=== PATIENT | female | born 1970 ===

== ENCOUNTER 2018-04-02 17:13 | Inpatient (IN) | payer BC ==
--- NOTE | 2018-04-02 17:44 | ED PDOC ---
"Arrival/HPI - General Time Seen by Provider: 04/02/18 17:15 Historian: Patient - History of Present Illness Narrative History of Present Illness (Text): 04/02/18 17:42 47 y/o female, pmh including htn/seizure, allergic to penicillin and carbamazepine, recently started control for her heavy menstrual period about 1 month ago, send in by pmd, for evaluation of leg swelling and shortness of breath. Pt. stated that she has been having left calf pain for the past 4 weeks, associated with shortness of breath about 2-3 days ago, admits coughing with difficulty getting the air in and out of the lung, no night sweat, no rash , no numbness or tingling, no palpitation, no other medical or psychological complaints. Past Medical History - Provider Review Nursing Documentation Reviewed: Yes - Infectious Disease Hx of Infectious Diseases: None - Cardiac Hx Cardiac Disorders: Yes Hx Hypertension: Yes - Pulmonary Hx Respiratory Disorders: No - Neurological Hx Neurological Disorder: Yes Hx Seizures: Yes Other/Comment: Last sz at age 17 - HEENT Hx HEENT Disorder: No - Renal Hx Renal Disorder: No - Endocrine/Metabolic Hx Endocrine Disorders: No - Hematological/Oncological Hx Blood Disorders: No - Integumentary Hx Dermatological Disorder: No - Musculoskeletal/Rheumatological Hx Musculoskeletal Disorders: No - Gastrointestinal Hx Gastrointestinal Disorders: No - Genitourinary/Gynecological Hx Genitourinary Disorders: No - Psychiatric Hx Depression: No Hx Emotional Abuse: No Hx Physical Abuse: No Hx Substance Use: No - Past Surgical History Past Surgical History: Non-Contributing - Anesthesia Hx Anesthesia: No - Suicidal Assessment Feels Threatened In Home Enviroment: No Family/Social History - Physician Review Nursing Documentation Reviewed: Yes Family/Social History: Unknown Family HX Smoking Status: Never Smoked Hx Alcohol Use: Yes Hx Substance Use: No Hx Substance Use Treatment: No Allergies/Home Meds Allergies/Adverse Reactions: Allergies amoxicillin Allergy (Verified 03/27/16 12:44) VOMITING carbamazepine [From Tegretol] Allergy (Verified 03/27/16 12:44) NAUSEA Penicillins Allergy (Verified 03/27/16 12:44) RASH Home Medications: Home Meds Medication Instructions Recorded Confirmed Losartan [Cozaar] 100 mg PO DAILY 12/24/13 03/27/16 Review of Systems - Review of Systems Constitutional: absent: Fatigue, Fevers Eyes: absent: Vision Changes ENT: absent: Hearing Changes Respiratory: SOB, Cough. absent: Sputum, Wheezing Cardiovascular: absent: Chest Pain Gastrointestinal: absent: Abdominal Pain, Vomiting Genitourinary Female: absent: Dysuria, Frequency Musculoskeletal: Other (+left leg swelling). absent: Arthralgias, Back Pain, Neck Pain Skin: absent: Rash, Pruritis Neurological: absent: Headache, Dizziness Psychiatric: absent: Anxiety, Depression, Suicidal Ideation Physical Exam Vital Signs Reviewed: Yes Vital Signs Temp Pulse Resp BP Pulse Ox 04/02/18 17:14 98.2 F 103 H 18 118/73 97 Temperature: Afebrile Blood Pressure: Normal Pulse: Tachycardic Respiratory Rate: Normal Appearance: Positive for: Well-Appearing, Non-Toxic, Comfortable Pain Distress: None Mental Status: Positive for: Alert and Oriented X 3 - Systems Exam Head: Present: Atraumatic, Normocephalic Pupils: Present: PERRL Extroacular Muscles: Present: EOMI Conjunctiva: Present: Normal Mouth: Present: Moist Mucous Membranes Neck: Present: Normal Range of Motion Respiratory/Chest: Present: Clear to Auscultation, Good Air Exchange. No: Respiratory Distress, Accessory Muscle Use Cardiovascular: Present: Normal S1, S2, Tachycardic, Other (no pedal edema). No : Murmurs Abdomen: No: Tenderness, Distention, Peritoneal Signs Back: Present: Normal Inspection Upper Extremity: Present: Normal Inspection. No: Cyanosis, Edema Lower Extremity: Present: Normal Inspection, NORMAL PULSES, Normal ROM, Robert's Sign (LLE ), Swelling (LLE), Neurovascularly Intact, Capillary Refill < 2 s. No : Edema, Deformity, Temperature Abnormalties Neurological: Present: GCS=15, CN II-XII Intact, Speech Normal Skin: Present: Warm, Dry, Normal Color. No: Rashes Psychiatric: Present: Alert, Oriented x 3, Normal Insight, Normal Concentration Medical Decision Making ED Course and Treatment: 04/02/18 17:45 -Labs/dimer/coag/type and screen -LLE Venuous doppler -CTA Chest (wells criteria 7.5) -EKG -Nasal cannula 2L -IVF @ 100cc/hr -administration physician -Observe and reassess 04/02/18 21:32 -Urine hcg is negative -EKG: Sinus Tachycardia @ 114 BPM, no ST elevation o rdepression, no T wave inversion -LLE Venuous doppler: as per preliminary report, no acute DVT -CTA Chest: Pulmonary emboli are seen in segmental and subsegmental branches of both lungs. Moderate clot burden. No evidence of right heart strain. Fatty infiltration of the liver with associated hepatomegaly. -Labs show no acute findings except K+ 3.2 (potassium chloride 40meq po ordered) -BNP with normal limit -Dimer 1018, CTA and sonogram ordered -Pt. refused rectal guaiac exam, no black color stool and no abdominal pain, no rectal bleeding, IV heparin bolud and maintence started -Paging the admitting Dr. Rock paged for admission. 04/02/18 21:50 -I spoke to Dr. Rock, discussed about the case/labs/radiology result and he came to see the patient earlier in person, agreed on IV heparin -I spoke to Dr. Ye, ICU tonight, will come to evaluate the patient and agreed on admission. - Critical Care Critical Care Minutes: 30 minutes Critical Care Time: Unstable Narrative Critical Care (Text): 04/02/18 22:00 Bilateral PE, tachycardia, needs IV heparin and bolus, risk for cardiac arrest. - Lab Interpretations Lab Results: 04/02/18 19:14 04/02/18 19:14 Lab Results 04/02/18 19:45: Blood Type Confirm O POSITIVE 04/02/18 19:14: WBC 8.5 D, RBC 3.85, Hgb 10.9 L, Hct 33.0 L, MCV 85.7, MCH 28.3 , MCHC 33.0, RDW 13.7, Plt Count 278, MPV 10.5, Gran % 62.4, Lymph % (Auto) 31.3 , [place] % (Auto) 4.7, Eos % (Auto) 1.4 L, Baso % (Auto) 0.2, Gran # 5.33, Lymph # (Auto) 2.7, [place] # (Auto) 0.4, Eos # (Auto) 0.1, Baso # (Auto) 0.02 04/02/18 19:14: Sodium 140, Potassium 3.2 L, Chloride 100, Carbon Dioxide 24, Anion Gap 19, BUN 12, Creatinine 0.7, Est GFR ( Amer) > 60, Est GFR (Non- Af Amer) > 60, Random Glucose 236 H, Calcium 9.5, Magnesium 1.7, Total Bilirubin 0.5, AST 54 H, ALT 73 H, Alkaline Phosphatase 104, NT-Pro-B Natriuret Pep 65.6, Total Protein 7.4, Albumin 4.1, Globulin 3.3, Albumin/Globulin Ratio 1.2 04/02/18 19:14: PT 11.6, INR 1.02, APTT 23.5 L, D-Dimer, Quantitative 1018 H 04/02/18 19:11: Blood Type O POSITIVE, Antibody Screen Negative, BBK History Checked No verified bt I have reviewed the lab results: Yes - RAD Interpretation Radiology Orders: 04/02/18 17:55 ANGIO CHEST PE PROTOCOL [CT] Stat DUPLEX LOWER EXTRM VEIN LEFT [US] Stat CTA Chest: Pulmonary arteries: Pulmonary emboli are seen in segmental and subsegmental branches of both lungs. Aorta: No acute findings. No thoracic aortic aneurysm. Lungs: Unremarkable. No mass. No consolidation. Pleural space: Unremarkable. No significant effusion. No pneumothorax. Heart: Unremarkable. No cardiomegaly. No significant pericardial effusion. No evidence of RV dysfunction. Bones/joints: No acute fracture. No dislocation. Soft tissues: Unremarkable. Lymph nodes: Unremarkable. No enlarged lymph nodes. Liver: Fatty infiltration of the liver with associated hepatomegaly. IMPRESSION: 1. Pulmonary emboli are seen in segmental and subsegmental branches of both lungs. Moderate clot burden. No evidence of right heart strain. 2. Fatty infiltration of the liver with associated hepatomegaly. MELISSA [facility] | Preliminary Radiology Report Thank you for allowing us to participate in the care of your patient. Dictated and Authenticated by: Orion Linda MD 04/02/2018 9:24 PM Eastern Time ([place] & [place]) LLE Venuous Doppler: as per preliminary report, no acute DVT Instructional Support Services Director: Radiologist - EKG Interpretation EKG Interpretation (Text): 04/02/18 17:58 -EKG: Sinus Tachycardia @ 114 BPM, no ST elevation o rdepression, no T wave inversion Interpreted by ED Physician: Yes Type: 12 lead EKG - Medication Orders Current Medication Orders: Acetaminophen (Tylenol 325mg Tab) 650 mg PO Q4 PRN PRN Reason: Pain, Mild (1-3) Sodium Chloride (Sodium Chloride 0.9%) 1,000 mls @ 100 mls/hr IV .Q10H HERBERTH Last Admin: 04/02/18 21:30 Dose: 100 mls/hr eMAR Start Stop Document 04/02/18 21:30 AD (Rec: 04/02/18 21:31 [email or web address] Intravenous Solution Start Date 04/02/18 Start Time 21:30 Heparin Sodium/Sodium Chloride (Heparin 52777 Units/250ml 1/2 Normal Saline) 25 ,000 units in 250 mls @ 21.898 mls/hr IV .[id number] PRN; Protocol; 18 UNITS/KG/HR PRN Reason: ADJUST RATE PER PROTOCOL Tramadol HCl (Ultram) 50 mg PO Q6H PRN PRN Reason: Pain, moderate (4-7) Discontinued Medications Acetaminophen (Tylenol 325mg Tab) 325 mg PO STAT STA Stop: 04/02/18 20:02 Last Admin: 04/02/18 21:31 Dose: 325 mg MAR Pain/Vitals Document 04/02/18 21:31 AD (Rec: 04/02/18 21:[address] [email or web address] Pain Reassessment Is This A Pain ReAssessment? No Presence of Pain Presence of Pain Yes Location Intensity 5 Potassium Chloride (K-Dur 20 Meq Er Tab) 40 meq PO STAT STA Stop: 04/02/18 19:45 Last Admin: 04/02/18 21:30 Dose: 40 meq - PA / PAINTER ORDNANCE / Resident Statement MD/DO has reviewed & agrees with the documentation as recorded. Disposition/Present on Arrival - Present on Arrival Any Indicators Present on Arrival: No History of DVT/PE: No History of Uncontrolled Diabetes: No Urinary Catheter: No History of Decub. Ulcer: No History Surgical Site Infection Following: None - Disposition Have Diagnosis and Disposition been Completed?: Yes Diagnosis: Hypokalemia, Bilateral pulmonary embolism Disposition: HOSPITALIZED Disposition Time: 21:34 Patient Plan: Admission, ICU, Observation Patient Problems: Current Active Problems Problem Status Onset Hypokalemia Acute Bilateral pulmonary embolism Acute Condition: STABLE Referrals: Michael Rock MD [Primary Care Provider] - Follow up with primary"
[2018-04-02 17:53] VITALS: BMI 49.0
[2018-04-02 19:21] LABS: BASO # 0.02 K/mm3 (0.0-2.0); BASO % 0.2 % (0.0-3.0); EOS # 0.1 (0.0-0.7); EOS % 1.4 % (1.5-5.0); GRAN # 5.33 (1.4-6.5); GRAN % 62.4 % (50.0-68.0); HEMOGLOBIN 10.9 g/dL (12.0-16.0); LYMPH # 2.7 (1.2-3.4); LYMPH % 31.3 % (22.0-35.0); MEAN CELL VOLUME 85.7 fl (80.0-105.0); MEAN CORPUSCULAR HEMOGLOBIN 28.3 pg (25.0-35.0); MEAN PLATELET VOLUME 10.5 fl (7.0-11.0); MONO # 0.4 (0.1-0.6); MONO % 4.7 % (1.0-6.0); RBC 3.85 10^6/uL (3.5-6.1); RED CELL DISTRIBUTION WIDTH 13.7 % (11.5-14.5); WHITE BLOOD COUNT 8.5 10^3/ul (4.5-11.0)
[2018-04-02 19:27] LABS: INR 1.02; PARTIAL THROMBOPLASTIN TIME 23.5 Seconds (25.1-36.5); PROTHROMBIN TIME 11.6 SECONDS (9.4-12.5)
[2018-04-02 19:29] LABS: ALB/GLOB RATIO 1.2 (1.1-1.8); ALBUMIN 4.1 g/dL (3.0-4.8); ALT/SGPT 73 U/L (7-56); AST/SGOT 54 U/L (14-36); BLOOD UREA NITROGEN 12 mg/dL (7-21); CALCIUM 9.5 mg/dL (8.4-10.5); GFR NON-AFRICAN AMERICAN > 60
[2018-04-02 19:37] LABS: B-TYPE NATRIURETIC PEPTIDE 65.6 pg/mL (0-450)
[2018-04-02] MEDS ORDERED: Potassium Chloride 20 mEq ER Tab PO STA (19:44)
[2018-04-02] MEDS ORDERED: Iodixanol 320 MG/ML 100 ML BOTTLE IV ONE (21:06)
[2018-04-02] MEDS: Sodium Chloride 0.9% 1,000 ML IV SCH (21:30)
[2018-04-02] MEDS: Heparin25000 units/250ml 1/2NS 25,000 UNITS/250 ML BAG IV PRN (22:02)
--- NOTE | 2018-04-02 23:34 | CP.PCM.CON ---
History of Present Illness - History of Present Illness History of Present Illness: CC: SOB, chest pain and calf pain Pt is a 47 yo F with pmhx of HTN, seizures and menorrhagia who presents today for SOB, chest pain and calf pain x 5 days. She states that she first felt the calf pain about a week ago, and it felt like a leg cramp which she normally gets. She states that on 03/29 she went to a football game and was climbing stairs when she suddenly noted SOB and chest pain. She thought that she was having a panic attack, but then it persisted through the weekend and into work, when she noted that the SOB was worsening and was noticed by her co-workers which prompted her to come to the ED. She also states that she was placed on control pills starting in January for menorrhagia. She denies any previous hx of PE, DVTs and denies any family hx of clotting issues. She admits to chest tightness, and a cough that is productive of yellow sputum but denies chest pain and SOB at this time, noting that she only has it with exertion. She also denies fever, chills, weakness, numbness, tingling, night sweats, palpitations, nausea, vomiting, or dysuria. PMHx: HTN, Seizures (last when she was 19), Menorrhagia PSHx: None Social Hx: Denies any smoking hx, no etOH abuse, no illcit drug use. 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 Dad: 70 - DM Review of Systems - Constitutional Constitutional: absent: Chills, Fever, Headache, Night Sweats, Weakness - EENT Eyes: absent: Change in Vision - Cardiovascular Cardiovascular: Chest Pain with Activity (radiating to the back), Dyspnea on Exertion, Leg Edema. absent: Chest Pain at Rest, Diaphoresis, Pain Radiating to Arm/Neck/Jaw, Lightheadedness, Palpitations - Respiratory Respiratory: Cough, Dyspnea on Exertion, Pain with Coughing. absent: Hemoptysis , Wheezing, Pain on Inspiration - Gastrointestinal Gastrointestinal: Constipation (related to iron pills). absent: Abdominal Pain , Diarrhea, Hematochezia, Melena, Nausea, Vomiting - Genitourinary Genitourinary: absent: Dysuria, Hematuria - Neurological Neurological: absent: Confusion, Dizziness, Numbness, Focal Weakness, Tingling, Weakness - Hematologic/Lymphatic Hematologic: absent: Easy Bleeding, Easy Bruising Past Patient History - Infectious Disease Hx of Infectious Diseases: None - Past Social History Smoking Status: Never Smoked - CARDIAC Hx Cardiac Disorders: Yes Hx Hypertension: Yes - PULMONARY Hx Respiratory Disorders: No - NEUROLOGICAL Hx Neurological Disorder: Yes Hx Seizures: Yes Other/Comment: Last sz at age 17 - HEENT Hx HEENT Problems: No - RENAL Hx Chronic Kidney Disease: No - ENDOCRINE/METABOLIC Hx Endocrine Disorders: No - HEMATOLOGICAL/ONCOLOGICAL Hx Blood Disorders: No - INTEGUMENTARY Hx Dermatological Problems: No - MUSCULOSKELETAL/RHEUMATOLOGICAL Hx Musculoskeletal Disorders: No - GASTROINTESTINAL Hx Gastrointestinal Disorders: No - GENITOURINARY/GYNECOLOGICAL Hx Genitourinary Disorders: No - PSYCHIATRIC Hx Depression: No Hx Emotional Abuse: No Hx Physical Abuse: No Hx Substance Use: No - SURGICAL HISTORY Hx Surgeries: No Other/Comment: breast cyst - ANESTHESIA Hx Anesthesia: No Meds Allergies/Adverse Reactions: Allergies Allergy/AdvReac Type Severity Reaction Status Date / Time amoxicillin Allergy VOMITING Verified 03/27/16 12:44 carbamazepine [From Tegretol] Allergy NAUSEA Verified 03/27/16 12:44 Penicillins Allergy RASH Verified 03/27/16 12:44 - Medications Medications: Current Medications Acetaminophen (Tylenol 325mg Tab) 650 mg PO Q4 PRN PRN Reason: Pain, Mild (1-3) Sodium Chloride (Sodium Chloride 0.9%) 1,000 mls @ 100 mls/hr IV .Q10H HERBERTH Last Admin: 04/02/18 21:30 Dose: 100 mls/hr Heparin Sodium/Sodium Chloride (Heparin 14499 Units/250ml 1/2 Normal Saline) 25 ,000 units in 250 mls @ 21.898 mls/hr IV .[id number] PRN; Protocol; 18 UNITS/KG/HR PRN Reason: ADJUST RATE PER PROTOCOL Last Admin: 04/02/18 22:02 Dose: 21.898 mls/hr Tramadol HCl (Ultram) 50 mg PO Q6H PRN PRN Reason: Pain, moderate (4-7) Physical Exam - Constitutional Appears: Well, Non-toxic, No Acute Distress - Head Exam Head Exam: ATRAUMATIC, NORMAL INSPECTION, NORMOCEPHALIC - Eye Exam Eye Exam: EOMI, Normal appearance, PERRL - Respiratory Exam Respiratory Exam: Clear to Auscultation Bilateral, NORMAL BREATHING PATTERN. absent: Accessory Muscle Use, Decreased Breath Sounds, Rales, Rhonchi, Wheezes, Respiratory Distress, Stridor - Cardiovascular Exam Cardiovascular Exam: RRR, +S1, +S2. absent: Tachycardia, Clicks, Gallop, Rubs - GI/Abdominal Exam GI & Abdominal Exam: Normal Bowel Sounds, Soft. absent: Distended, Firm, Guarding, Rebound, Rigid, Tenderness - Extremities Exam Extremities exam: Positive for: normal capillary refill, normal inspection, pedal pulses present. Negative for: calf tenderness Additional comments: no warmth or erythema - Neurological Exam Neurological exam: Alert, CN II-XII Intact, Oriented x3 - Psychiatric Exam Psychiatric exam: Normal Affect, Normal Mood - Skin Skin Exam: Dry, Intact, Normal Color, Warm Additional comments: no cyanosis or petechiae on exam Results - Vital Signs Recent Vital Signs: Last Vital Signs Temp 98.2 F 04/02/18 17:14 Pulse 99 H 04/02/18 22:50 Resp 18 04/02/18 22:50 BP 124/72 04/02/18 22:50 Pulse Ox 98 04/02/18 22:50 - Labs Result Diagrams: 04/03/18 04:10 04/03/18 04:10 Assessment & Plan - Assessment and Plan (Free Text) Assessment: Pt is a 47 yo F with pmhx of HTN, seizures and menorrhagia who presents today for SOB, chest pain and calf pain x 5 days. Was subsequently found to have b/l PE on CT angio, now on heparin drip. Plan: 1) Provoked B/l PE 2/2 DVT w/o hemodynamic instability: - CTA showed: Pulmonary emboli are seen in segmental and subsegmental branches of both lungs. Moderate clot burden. No evidence of right heart strain. 2. Fatty infiltration of the liver with associated hepatomegaly. - Heparin drip started - d/saba BC pills - Echo - f/u official LE 2) Hypokalemia: - Repleting K+ - F/u in AM 3) Hx of Menorrhagia: - TOOLING SPECIALIST consulted - Will continue a/c pending cyber incident analyst recs - Cont to monitor for any vaginal bleeding 4) HTN: - Continue losartan, feurosemide 5) Anemia: - Continue Fe supplementation DVT Ppx: - Therapuetic heparin drip - Date & Time Date: 04/03/18 Time: 08:26
[2018-04-03 04:44] LABS: BASO # 0.02 K/mm3 (0.0-2.0); BASO % 0.3 % (0.0-3.0); EOS # 0.2 (0.0-0.7); EOS % 3.2 % (1.5-5.0); GRAN # 3.62 (1.4-6.5); GRAN % 54.4 % (50.0-68.0); HEMOGLOBIN 9.8 g/dL (12.0-16.0); LYMPH # 2.5 (1.2-3.4); MEAN CELL VOLUME 86.1 fl (80.0-105.0); MEAN CORPUSCULAR HEMOGLOBIN 27.8 pg (25.0-35.0); MEAN CORPUSCULAR HGB CONC 32.2 g/dl (31.0-37.0); MEAN PLATELET VOLUME 10.1 fl (7.0-11.0); MONO # 0.3 (0.1-0.6); MONO % 5.1 % (1.0-6.0); RBC 3.53 10^6/uL (3.5-6.1); RED CELL DISTRIBUTION WIDTH 13.7 % (11.5-14.5)
[2018-04-03 04:47] LABS: WHITE BLOOD COUNT 6.7 10^3/ul (4.5-11.0)
[2018-04-03 05:03] LABS: BLOOD UREA NITROGEN 10 mg/dL (7-21); CALCIUM 8.9 mg/dL (8.4-10.5); GFR NON-AFRICAN AMERICAN > 60
[2018-04-03 05:08] LABS: INR 1.07; PROTHROMBIN TIME 12.3 SECONDS (9.4-12.5)
--- NOTE | 2018-04-03 08:14 | CON ---
Copied To: Juan Smith MD Attending MD: Juan Smith MD DATE: 04/03/2018 PULMONARY CONSULTATION REASON FOR CONSULTATION: Pulmonary embolism. REFERRING PHYSICIAN: Michael Hooks MD. HISTORY OF PRESENT ILLNESS: The patient is a 47-year-old female, with past medical history significant for hypertension, seizure disorder, menorrhagia, who presents to [facility] with main complaints of increasing shortness of breath at rest, dyspnea on exertion, and cough for the past 5 days. The patient denies significant sputum production. The patient also states to chest pain "on and off" for the past 5 days. There is no history of coughing up of blood. There is no history of chest pain, worsening - with deep respirations. There is no history of temperatures, chills, or infectious exposure. There is no history of night sweats, weight loss, or appetite change prior to the above events. The patient does state to left calf pain (described as tightness) for the past week. No history of syncope or diaphoresis. No history of recent travel or trauma. REVIEW OF SYSTEMS: No history of nausea, vomiting, or diarrhea. No acute urinary symptoms. No new neurologic complaints. Rest of the review of systems negative. ALLERGIES: AMOXICILLIN AND TEGRETOL. SOCIAL HISTORY: Negative for tobacco and negative for alcohol. FAMILY HISTORY: No inheritable diseases. HOME MEDICATIONS: Include losartan, Lasix, and control pills (for the menorrhagia). PHYSICAL EXAMINATION: GENERAL: The patient appears comfortable this morning. She is not short of breath at rest. VITAL SIGNS: Temperature is 97.8, pulse on the monitor is 92, respirations 18, blood pressure 149/89. Oxygen saturation on room air is 100%. HEENT: Normocephalic, atraumatic. No JVD. CARDIOVASCULAR: Positive S1, S2. No S3 gallop. LUNGS: Clear bilaterally. EXTREMITIES: There is mild edema in both lower extremities. There is no cyanosis or clubbing. The calves are nontender to palpation. GASTROINTESTINAL: Abdomen is soft, nontender, and nondistended. Bowel sounds are positive. SKIN: No acute rash. NEUROLOGIC: Limited at the present time. PERTINENT LABORATORY DATA: CAT scan of the chest was done as an angiogram protocol. There are pulmonary emboli seen in the segmental and subsegmental branches of both lungs. There is a moderate clot burden. There is no evidence of right heart strain. CBC: White count 6.7, hemoglobin 9.8, hematocrit 30.4, platelets of 245,000. Complete metabolic profile: Potassium 3.5, glucose 297. Rest of the metabolic profile is within normal limits. Doppler ultrasound--results pending. IMPRESSION: 1. Bilateral pulmonary emboli. 2. Rule out deep venous thrombosis - left calf. 3. Mild anemia. 4. Menorrhagia. 5. Seizure disorder. PLAN: The patient presents to [facility] with main complaints of shortness of breath at rest, dyspnea on exertion,cough, and chest pain for the 5 days. In addition, the patient also stated to some left calf tightness for the past week. The patient was seen by her private medical doctor (Dr. Rock) - who sent her to the Emergency Room for additional evaluation. I did review the CAT scan of the chest - done as an angiogram protocol. There are bilateral pulmonary emboli noted, with a moderate clot burden. However, there is no evidence of right heart strain. Doppler ultrasound of the legs has also been done - no official reading at this point in time. The patient is currently on the heparin protocol. She is hemodynamically stable with no significant alveolar-arterial gradient. Oxygen saturation on room air this morning is 100%. I will speak with the ICU team this morning - in reference to possibly starting the patient on an oral medication. Again, I am awaiting the official results of the Doppler ultrasound of the left lower extremity. The patient appears very comfortable this morning. Again, she is hemodynamically stable. She is significantly improved - compared to her initial presentation. As above, the patient was recently started on control pills - for her menorrhagia. I certainly agree with an SUPERVISOR CALIBRATION consult - in reference to possibly changing the therapy for her menorrhagia. Again, the patient is significantly improved overall. I will discuss the above with the entire ICU team in the next few moments. I will also discuss the above with the attending physician. Thank you very much for this pulmonary consultation. Juan Smith MD MTDKhadijah
[2018-04-03 08:21] LABS: ALB/GLOB RATIO 1.1 (1.1-1.8); ALBUMIN 3.6 g/dL (3.0-4.8); ALT/SGPT 69 U/L (7-56); AST/SGOT 61 U/L (14-36); BILIRUBIN,DIRECT 0.2 mg/dL (0.0-0.4)
--- NOTE | 2018-04-03 09:10 | CT ---
CTA chest PE protocol Indication: LLE swelling, sob on exertion, tachy, r/o pe Technique: Contiguous axial images were obtained through the chest with intravenous contrast enhancement. Sagittal and coronal reconstructions were generated and reviewed. This CT exam was performed using 1 or more of the following dose reduction techniques: Automated exposure control, adjustment of the MAA and/or kV according to patient size, and/or use of iterative reconstruction technique. IV Contrast: 100 mL Visipaque IV Radiation dose (DLP): 468.73 MGy-cm. Comparison: Chest x-ray performed 03/27/16 Findings: Examination limited by habitus. Visualized portions of the inferior thyroid gland appear unremarkable. The mediastinal and hilar vascular structures appear within normal limits. The heart appears within normal limits of size. Bilateral pulmonary emboli are evident within segmental and subsegmental branches. No focal consolidation. No pleural effusion. No pneumothorax. No suspicious pulmonary nodules measuring greater than 5 mm. Distal esophageal wall thickening/ small hiatal hernia. Limited visualized portions of the upper abdomen: Hypoattenuation of the liver compatible with hepatic steatosis. Partially imaged hepatomegaly. Mild degenerative changes of the spine. Impression: Bilateral pulmonary emboli involving segmental and subsegmental branches. Partially imaged hepatomegaly. Hypoattenuation of the liver compatible with hepatic steatosis. Preliminary impression was provided by virtual radiologic. Emergent findings were discussed between Dr. Linda and EDIE Melton at 10:04 p.m. on 04/02/18.
[2018-04-03] MEDS: Heparin25000 units/250ml 1/2NS 25,000 UNITS/250 ML BAG IV PRN (09:30)
[2018-04-03] MEDS: Sodium Chloride 0.9% 1,000 ML IV SCH ×2 (09:32→22:29)
[2018-04-03] MEDS ORDERED: Potassium Chloride 20 mEq ER Tab PO STA (09:44)
--- NOTE | 2018-04-03 10:00 | HP ---
Copied To: Michael Rock MD Attending MD: Michael Rock MD CHIEF COMPLAINT: Shortness of breath. HISTORY OF PRESENT ILLNESS: This is a pleasant moderately overweight 47-year-old woman who called and came to the office today reporting of sudden and severe shortness of breath on Sunday, some 4 days ago. Symptoms continued through the weekend prompting her to make the call. She is currently being worked up and scheduled for surgery for hysterectomy by her jewelry department supervisor for heavy menstrual bleeding causing an anemia. She was recently started on progesterone to help with her heavy periods. She does not smoke, denies any prolonged period of immobility. PAST MEDICAL HISTORY: Significant for hypertension since 05/2012, negative for diabetes, cholesterol, tuberculosis, asthma, gout or COPD. She reportedly had febrile seizure as a child, but no further seizure since then. There is no history of TIA, CVA, myocardial infarction, coronary artery disease or cancers of any type. She had a kidney stone when she was 21 years old that passed. She had a biopsy of a left-sided breast cyst twice in 2010. ALLERGIES: SHE HAS NO KNOWN ALLERGIES. SOCIAL HISTORY: Does not smoke and never drink. Does not drink coffee. Does not drink alcohol, but drinks 1 or 2 cups of tea a day. She goes for mammogram ever since the time of her biopsy. She does get the flu shot every year. FAMILY HISTORY: Significant that her mother at age 63 in 2006 of lupus, diabetes and hypertension, but father is alive at age 70 with trigeminal neuralgia, hypertension, and diabetes. She is the oldest of 3 siblings. She has 2 brothers with hypertension. She is a . Her is killed in an assault/robbery in 2002. She has 1 child, a son, 23 years old, in the army in [place]. 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. Problem list in the office includes overweight, hypertension and anemia due to GI and blood loss as of 03/2018. HOME MEDICATIONS: Include losartan 50 mg daily and furosemide 20 mg p.o. daily p.r.n. leg edema. REVIEW OF SYSTEMS: On multiple points are negative, but for symptoms related to her obesity, perhaps mild arthritis and recent problem of heavy excessive bleeding. PHYSICAL EXAMINATION: GENERAL: The patient is awake, alert and clear, was seen in the office and then again in the emergency room. HEAD AND NECK: Unremarkable. Conjunctiva pink. Mucous membranes moist. NECK: Supple without masses. Thyroid was not palpable. LUNGS: Clear to auscultation and percussion. There were no rales, no wheezes, no rhonchi and good air exchange. HEART: Regular, but tachycardic at 120 beats per minute. ABDOMEN: Soft and nontender. EXTREMITIES: Left leg was somewhat swollen. There was tenderness in the left posterior calf and palpable cord in the posterior fossa of the left leg. LABORATORY DATA: In the emergency, labs showed an H and H of 10 and 33, coags were unremarkable with INR of 1.02. PTT little bit low at 23.5 and a D-dimer that was elevated at 1018. Chemistries showed a slightly low potassium of 3.2 and non-fasting glucose of 236 and again, the patient has no history of diabetes. Venous Doppler of the lower extremities was done and unremarkable. CT angiogram was done revealing multiple bilateral pulmonary emboli. With diagnosis of bilateral pulmonary emboli, the patient was started on systemic anticoagulation with intravenous heparin in the emergency room. A call was placed to the proof carrier. She will be evaluated and admitted to ICU. I will ask for Pulmonary consultation by Dr. Smith, convert her to oral anticoagulants. I would not restart the progesterone. Of course, we will have to face the problem of BREAKER HAND bleeding and consult her jewelry department supervisor. Surgery was scheduled at [facility] which is a [facility]. I have to see if her jewelry department supervisor comes to [place] and ask him to consult . Michael Rock MD
--- NOTE | 2018-04-03 10:47 | CARD ---
APPROVED REPORT Date of service: 04/02/2018 EKG Measurement Heart [id number] <Conclusion> Sinus tachycardia Q in lll Prolonged QTc
--- NOTE | 2018-04-03 13:15 | US ---
PROCEDURE: Left lower extremity venous US HISTORY: Leg pain and swelling. Evaluate for DVT. PHYSICIAN(S): Ever Cruz MD. TECHNIQUE: Duplex sonography and color-flow Doppler with graded compression were used to evaluate the deep venous system of the left lower extremity. The exam is limited by body habitus and FINDINGS: The visualized deep venous system of the left lower extremity is sonographically normal and compressible. Normal wave forms and augmentation are seen. There is no sonographic evidence for deep venous thrombosis in the visualized segments of the left lower extremity. IMPRESSION: 1. No sonographic evidence for deep venous thrombosis in the visualized segments of the left lower extremity. 2. Limited study.
--- NOTE | 2018-04-03 14:00 | CP.CCUPN ---
<Sisi Workman - Last Filed: 04/03/18 13:37> CCU Subjective - Physician Review Events Since Last Encounter (Free Text): 04/03/18 13:37 Patient seen and examined at bedside. No acute events overnight. Patient states that she feels well. Denies sob at rest, chest pain, nausea, vomiting, abdominal pain, legs swelling, urinary complaints. Patient reports getting OOB to commode, states that she gets mild sob with exertion. Patient reports that she has not been having any vaginal bleeding for past 1 week. Patient reports that she started taking her Provera in January 2018 for menorrhagia 2/2 fibroids. At the time, patient was having excessive vaginal bleeding, passing clots. The bleeding then stabilized two weeks ago, she was using 8-10 pads per day, until she stopped bleeding 1 week ago. Critical Care Time Spent (in minutes): 60 CCU Objective - Vital Signs / Intake & Output Intake and Output (Last 8hrs): Intake & Output 04/02/18 04/03/18 04/03/18 22:59 06:59 14:59 Weight 268 lb - Physical Exam Head: Positive for: Atraumatic, Normocephalic Pupils: Positive for: PERRL Extroacular Muscles: Positive for: EOMI Conjunctiva: Positive for: Normal Mouth: Positive for: Moist Mucous Membranes Neck: Positive for: Normal Range of Motion Respiratory/Chest: Positive for: Clear to Auscultation, Good Air Exchange. Negative for: Respiratory Distress, Accessory Muscle Use Cardiovascular: Positive for: Normal S1, S2, Tachycardic, Other (no pedal edema) . Negative for: Murmurs Abdomen: Negative for: Tenderness, Distention, Peritoneal Signs Back: Positive for: Normal Inspection Upper Extremity: Positive for: Normal Inspection. Negative for: Cyanosis, Edema Lower Extremity: Positive for: Normal Inspection, Edema (trace), NORMAL PULSES, Normal ROM, Neurovascularly Intact, Capillary Refill < 2 s. Negative for: CALF TENDERNESS, Deformity, Temperature Abnormalties Neurological: Positive for: GCS=15, CN II-XII Intact, Speech Normal Skin: Positive for: Warm, Dry, Normal Color. Negative for: Rashes Psychiatric: Positive for: Alert, Oriented x 3, Normal Insight, Normal Concentration - Medications Active Medications: Active Medications Generic Name Dose Route Start Last Admin Trade Name Freq PRN Reason Stop Dose Admin Acetaminophen 650 mg 04/02/18 20:00 04/03/18 13:29 Tylenol 325mg Tab PO 650 mg Q4 PRN Administration Pain, Mild (1-3) Sodium Chloride 1,000 mls @ 100 mls/hr 04/02/18 19:45 04/03/18 09:32 Sodium Chloride 0.9% IV 100 mls/hr .Q10H HERBERTH Administration Heparin Sodium/Sodium Chloride 25,000 units in 250 mls @ 21.898 mls/hr 21:29 04/03/18 09:30 Heparin 90079 Units/250ml 1/2 Normal Saline IV 18 units/kg/hr .[id number] PRN 21.898 mls/hr ADJUST RATE PER PROTOCOL Administration Protocol 18 UNITS/KG/HR Tramadol HCl 50 mg 04/02/18 20:05 04/03/18 10:18 Ultram PO 50 mg Q6H PRN Administration Pain, moderate (4-7) - Patient Studies Lab Studies: Lab Studies 04/03/18 04/03/18 04/03/18 Range/Units 04:10 04:10 04:10 WBC (4.5-11.0) 10^3/ul RBC (3.5-6.1) 10^6/uL Hgb (12.0-16.0) g/dL Hct (36.0-48.0) % MCV (80.0-105.0) fl MCH (25.0-35.0) pg MCHC (31.0-37.0) g/dl RDW (11.5-14.5) % Plt Count (120.0-450.0) 10^3/uL MPV (7.0-11.0) fl Gran % (50.0-68.0) % Lymph % (Auto) (22.0-35.0) % [place] % (Auto) (1.0-6.0) % Eos % (Auto) (1.5-5.0) % Baso % (Auto) (0.0-3.0) % Gran # (1.4-6.5) Lymph # (Auto) (1.2-3.4) [place] # (Auto) (0.1-0.6) Eos # (Auto) (0.0-0.7) Baso # (Auto) (0.0-2.0) K/mm3 PT 12.3 (9.4-12.5) SECONDS INR 1.07 APTT 61.7 H (25.1-36.5) Seconds Sodium 138 (132-148) mmol/L Potassium 3.5 L (3.6-5.0) mmol/L Chloride 103 (98-107) mmol/L Carbon Dioxide 23 (21-33) mmol/L Anion Gap 15 (10-20) BUN 10 (7-21) mg/dL Creatinine 0.6 L (0.7-1.2) mg/dl Est GFR ( Amer) > 60 Est GFR (Non-Af Amer) > 60 Random Glucose 297 H (70-110) mg/dL Calcium 8.9 (8.4-10.5) mg/dL Phosphorus 3.4 (2.5-4.5) mg/dL Magnesium 1.7 (1.7-2.2) mg/dL Total Bilirubin 0.4 (0.2-1.3) mg/dL Direct Bilirubin 0.2 (0.0-0.4) mg/dL AST 61 H (14-36) U/L ALT 69 H (7-56) U/L Alkaline Phosphatase 104 (38-126) U/L Total Protein 6.8 (5.8-8.3) g/dL Albumin 3.6 (3.0-4.8) g/dL Globulin 3.2 gm/dL Albumin/Globulin Ratio 1.1 (1.1-1.8) 04/03/18 Range/Units 04:10 WBC 6.7 D (4.5-11.0) 10^3/ul RBC 3.53 (3.5-6.1) 10^6/uL Hgb 9.8 L (12.0-16.0) g/dL Hct 30.4 L (36.0-48.0) % MCV 86.1 (80.0-105.0) fl MCH 27.8 (25.0-35.0) pg MCHC 32.2 (31.0-37.0) g/dl RDW 13.7 (11.5-14.5) % Plt Count 245 (120.0-450.0) 10^3/uL MPV 10.1 (7.0-11.0) fl Gran % 54.4 (50.0-68.0) % Lymph % (Auto) 37.0 H (22.0-35.0) % [place] % (Auto) 5.1 (1.0-6.0) % Eos % (Auto) 3.2 (1.5-5.0) % Baso % (Auto) 0.3 (0.0-3.0) % Gran # 3.62 (1.4-6.5) Lymph # (Auto) 2.5 (1.2-3.4) [place] # (Auto) 0.3 (0.1-0.6) Eos # (Auto) 0.2 (0.0-0.7) Baso # (Auto) 0.02 (0.0-2.0) K/mm3 PT (9.4-12.5) SECONDS INR APTT (25.1-36.5) Seconds Sodium (132-148) mmol/L Potassium (3.6-5.0) mmol/L Chloride (98-107) mmol/L Carbon Dioxide (21-33) mmol/L Anion Gap (10-20) BUN (7-21) mg/dL Creatinine (0.7-1.2) mg/dl Est GFR ( Amer) Est GFR (Non-Af Amer) Random Glucose (70-110) mg/dL Calcium (8.4-10.5) mg/dL Phosphorus (2.5-4.5) mg/dL Magnesium (1.7-2.2) mg/dL Total Bilirubin (0.2-1.3) mg/dL Direct Bilirubin (0.0-0.4) mg/dL AST (14-36) U/L ALT (7-56) U/L Alkaline Phosphatase (38-126) U/L Total Protein (5.8-8.3) g/dL Albumin (3.0-4.8) g/dL Globulin gm/dL Albumin/Globulin Ratio (1.1-1.8) Laboratory Results - last 24 hr 04/03/18 04/03/18 04/03/18 04:10 04:10 04:10 WBC 6.7 D RBC 3.53 Hgb 9.8 L Hct 30.4 L MCV 86.1 MCH 27.8 MCHC 32.2 RDW 13.7 Plt Count 245 MPV 10.1 Gran % 54.4 Lymph % (Auto) 37.0 H [place] % (Auto) 5.1 Eos % (Auto) 3.2 Baso % (Auto) 0.3 Gran # 3.62 Lymph # (Auto) 2.5 [place] # (Auto) 0.3 Eos # (Auto) 0.2 Baso # (Auto) 0.02 PT 12.3 INR 1.07 APTT Sodium 138 Potassium 3.5 L Chloride 103 Carbon Dioxide 23 Anion Gap 15 BUN 10 Creatinine 0.6 L Est GFR ( Amer) > 60 Est GFR (Non-Af Amer) > 60 Random Glucose 297 H Calcium 8.9 Phosphorus 3.4 Magnesium 1.7 Total Bilirubin 0.4 Direct Bilirubin 0.2 AST 61 H ALT 69 H Alkaline Phosphatase 104 Total Protein 6.8 Albumin 3.6 Globulin 3.2 Albumin/Globulin Ratio 1.1 04/03/18 04:10 WBC RBC Hgb Hct MCV MCH MCHC RDW Plt Count MPV Gran % Lymph % (Auto) Desoto % (Auto) Eos % (Auto) Baso % (Auto) Gran # Lymph # (Auto) [place] # (Auto) Eos # (Auto) Baso # (Auto) PT INR APTT 61.7 H Sodium Potassium Chloride Carbon Dioxide Anion Gap BUN Creatinine Est GFR ( Amer) Est GFR (Non-Af Amer) Random Glucose Calcium Phosphorus Magnesium Total Bilirubin Direct Bilirubin AST ALT Alkaline Phosphatase Total Protein Albumin Globulin Albumin/Globulin Ratio Review of Systems - Review of Systems All systems: reviewed and no additional remarkable complaints except Review of Systems: as per HPI Assessment/Plan - Assessment and Plan (Free Text) Assessment: 47 year old female with PMH HTN, seizures and menorrhagia, presents for SOB, admitted to ICU for bilateral PE in setting of anemia 2/2 menorrhagia, being monitored for hemodynamic stability: Neuro: AAOx3 today. No change in mental status. Cont to monitor. CV: Normotensive currently. Hold home cozaar. Maintain MAP>65. Hemodynamically stable. Cont to monitor. Pulm: On RA. Saturating well. CTA showed b/l PE in segmental and subsegmental branches. Moderate clot burden. No evidence of right heart strain. On heparin drip. Will trend Hgb now. Patient reports no active bleeding for 1 week. Spoke with Stockroom Inventory Clerk garth Vera to start home Provera. Discussed with Dr Hilario that patient will be put on anticoagulant for her PE. Hysterectomy will be scheduled at a later date than next month, as per Dr Hilario. GI: Heart healthy diet. Start Pepcid. Renal: BUN/Cr 10/0.6. Replace lytes, maintain euvolemia. Continue to monitor. ID: Afebrile, no leukocytosis. Monitor Endo: Maintain euglycemia. Heme: Hgb 9.8 (baseline unknown). f/u hgb q8h. Psych: Normal mood. DVT ppx - heparin drip GI ppx - Pepcid Dispo: If Hgb remains stable, will downgrade patient to medical floors. Case seen and discussed with Dr Archie Sky. <Archie Sky - Last Filed: 04/03/18 15:38> CCU Subjective - Physician Review Critical Care Time Spent (in minutes): 0 CCU Objective - Vital Signs / Intake & Output Intake and Output (Last 8hrs): Intake & Output 04/03/18 04/03/18 04/03/18 06:59 14:59 22:59 Weight 268 lb - Medications Active Medications: Active Medications Generic Name Dose Route Start Last Admin Trade Name Freq PRN Reason Stop Dose Admin Acetaminophen 650 mg 04/02/18 20:00 04/03/18 13:29 Tylenol 325mg Tab PO 650 mg Q4 PRN Administration Pain, Mild (1-3) Famotidine 40 mg 04/03/18 22:00 Pepcid PO HS HERBERTH Sodium Chloride 1,000 mls @ 100 mls/hr 04/02/18 19:45 04/03/18 09:32 Sodium Chloride 0.9% IV 100 mls/hr .Q10H HERBERTH Administration Heparin Sodium/Sodium Chloride 25,000 units in 250 mls @ 21.898 mls/hr 21:29 04/03/18 09:30 Heparin 08486 Units/250ml 1/2 Normal Saline IV 18 units/kg/hr .[id number] PRN 21.898 mls/hr ADJUST RATE PER PROTOCOL Administration Protocol 18 UNITS/KG/HR Tramadol HCl 50 mg 04/02/18 20:05 04/03/18 10:18 Ultram PO 50 mg Q6H PRN Administration Pain, moderate (4-7) - Patient Studies Lab Studies: Lab Studies 04/03/18 04/03/18 04/03/18 Range/Units 14:25 04:10 04:10 WBC 7.1 (4.5-11.0) 10^3/ul RBC 3.56 (3.5-6.1) 10^6/uL Hgb 10.1 L (12.0-16.0) g/dL Hct 30.6 L (36.0-48.0) % MCV 86.0 (80.0-105.0) fl MCH 28.4 (25.0-35.0) pg MCHC 33.0 (31.0-37.0) g/dl RDW 13.5 (11.5-14.5) % Plt Count 239 (120.0-450.0) 10^3/uL MPV 10.4 (7.0-11.0) fl Gran % (50.0-68.0) % Lymph % (Auto) (22.0-35.0) % [place] % (Auto) (1.0-6.0) % Eos % (Auto) (1.5-5.0) % Baso % (Auto) (0.0-3.0) % Gran # (1.4-6.5) Lymph # (Auto) (1.2-3.4) [place] # (Auto) (0.1-0.6) Eos # (Auto) (0.0-0.7) Baso # (Auto) (0.0-2.0) K/mm3 PT 12.3 (9.4-12.5) SECONDS INR 1.07 APTT 61.7 H (25.1-36.5) Seconds Sodium (132-148) mmol/L Potassium (3.6-5.0) mmol/L Chloride (98-107) mmol/L Carbon Dioxide (21-33) mmol/L Anion Gap (10-20) BUN (7-21) mg/dL Creatinine (0.7-1.2) mg/dl Est GFR ( Amer) Est GFR (Non-Af Amer) Random Glucose (70-110) mg/dL Calcium (8.4-10.5) mg/dL Phosphorus (2.5-4.5) mg/dL Magnesium (1.7-2.2) mg/dL Total Bilirubin (0.2-1.3) mg/dL Direct Bilirubin (0.0-0.4) mg/dL AST (14-36) U/L ALT (7-56) U/L Alkaline Phosphatase (38-126) U/L Total Protein (5.8-8.3) g/dL Albumin (3.0-4.8) g/dL Globulin gm/dL Albumin/Globulin Ratio (1.1-1.8) 04/03/18 04/03/18 Range/Units 04:10 04:10 WBC 6.7 D (4.5-11.0) 10^3/ul RBC 3.53 (3.5-6.1) 10^6/uL Hgb 9.8 L (12.0-16.0) g/dL Hct 30.4 L (36.0-48.0) % MCV 86.1 (80.0-105.0) fl MCH 27.8 (25.0-35.0) pg MCHC 32.2 (31.0-37.0) g/dl RDW 13.7 (11.5-14.5) % Plt Count 245 (120.0-450.0) 10^3/uL MPV 10.1 (7.0-11.0) fl Gran % 54.4 (50.0-68.0) % Lymph % (Auto) 37.0 H (22.0-35.0) % [place] % (Auto) 5.1 (1.0-6.0) % Eos % (Auto) 3.2 (1.5-5.0) % Baso % (Auto) 0.3 (0.0-3.0) % Gran # 3.62 (1.4-6.5) Lymph # (Auto) 2.5 (1.2-3.4) [place] # (Auto) 0.3 (0.1-0.6) Eos # (Auto) 0.2 (0.0-0.7) Baso # (Auto) 0.02 (0.0-2.0) K/mm3 PT (9.4-12.5) SECONDS INR APTT (25.1-36.5) Seconds Sodium 138 (132-148) mmol/L Potassium 3.5 L (3.6-5.0) mmol/L Chloride 103 (98-107) mmol/L Carbon Dioxide 23 (21-33) mmol/L Anion Gap 15 (10-20) BUN 10 (7-21) mg/dL Creatinine 0.6 L (0.7-1.2) mg/dl Est GFR ( Amer) > 60 Est GFR (Non-Af Amer) > 60 Random Glucose 297 H (70-110) mg/dL Calcium 8.9 (8.4-10.5) mg/dL Phosphorus 3.4 (2.5-4.5) mg/dL Magnesium 1.7 (1.7-2.2) mg/dL Total Bilirubin 0.4 (0.2-1.3) mg/dL Direct Bilirubin 0.2 (0.0-0.4) mg/dL AST 61 H (14-36) U/L ALT 69 H (7-56) U/L Alkaline Phosphatase 104 (38-126) U/L Total Protein 6.8 (5.8-8.3) g/dL Albumin 3.6 (3.0-4.8) g/dL Globulin 3.2 gm/dL Albumin/Globulin Ratio 1.1 (1.1-1.8) Laboratory Results - last 24 hr 04/03/18 04/03/18 04/03/18 04:10 04:10 04:10 WBC 6.7 D RBC 3.53 Hgb 9.8 L Hct 30.4 L MCV 86.1 MCH 27.8 MCHC 32.2 RDW 13.7 Plt Count 245 MPV 10.1 Gran % 54.4 Lymph % (Auto) 37.0 H [place] % (Auto) 5.1 Eos % (Auto) 3.2 Baso % (Auto) 0.3 Gran # 3.62 Lymph # (Auto) 2.5 [place] # (Auto) 0.3 Eos # (Auto) 0.2 Baso # (Auto) 0.02 PT 12.3 INR 1.07 APTT Sodium 138 Potassium 3.5 L Chloride 103 Carbon Dioxide 23 Anion Gap 15 BUN 10 Creatinine 0.6 L Est GFR ( Amer) > 60 Est GFR (Non-Af Amer) > 60 Random Glucose 297 H Calcium 8.9 Phosphorus 3.4 Magnesium 1.7 Total Bilirubin 0.4 Direct Bilirubin 0.2 AST 61 H ALT 69 H Alkaline Phosphatase 104 Total Protein 6.8 Albumin 3.6 Globulin 3.2 Albumin/Globulin Ratio 1.1 04/03/18 04/03/18 04:10 14:25 WBC 7.1 RBC 3.56 Hgb 10.1 L Hct 30.6 L MCV 86.0 MCH 28.4 MCHC 33.0 RDW 13.5 Plt Count 239 MPV 10.4 Gran % Lymph % (Auto) [place] % (Auto) Eos % (Auto) Baso % (Auto) Gran # Lymph # (Auto) [place] # (Auto) Eos # (Auto) Baso # (Auto) PT INR APTT 61.7 H Sodium Potassium Chloride Carbon Dioxide Anion Gap BUN Creatinine Est GFR ( Amer) Est GFR (Non-Af Amer) Random Glucose Calcium Phosphorus Magnesium Total Bilirubin Direct Bilirubin AST ALT Alkaline Phosphatase Total Protein Albumin Globulin Albumin/Globulin Ratio Addendum Addendum: 04/03/18 15:35 ICU Attending Addendum: Patient seen and examined. Case reviewed on round with housestaff. Agree with resident note above with the following additions/exceptions: 47 F with HTN, seizures and menorrhagia, presents with SOB found to have bilateral PE. Etio of PE unclear. She is on provera (not estrogen) and is a non-smoker. Will cont heparin for now while monitoring for vaginal bleeding. H/H has been stable and no signs of bleeding yet. Hemodynamically stable. It may be reasonable to place an IVC filter now just in case she bleeds on outpatient AC. It will also protect her in the perioperative period as she is schedule for RIAZ in 1 month as she will likely need to hold AC prior to surgery. Will defer decision to primary team. Otherwise she is stable from an ICU perspective. Can transfer to tele Rest of care as noted above. Archie Sky MD Comb Machine Operator Critical care time : 35 mins
[2018-04-03 14:45] LABS: HEMOGLOBIN 10.1 g/dL (12.0-16.0); MEAN CORPUSCULAR HEMOGLOBIN 28.4 pg (25.0-35.0); MEAN PLATELET VOLUME 10.4 fl (7.0-11.0); RBC 3.56 10^6/uL (3.5-6.1); RED CELL DISTRIBUTION WIDTH 13.5 % (11.5-14.5); WHITE BLOOD COUNT 7.1 10^3/ul (4.5-11.0)
[2018-04-03 23:57] LABS: HEMOGLOBIN 10.2 g/dL (12.0-16.0); MEAN CELL VOLUME 86.1 fl (80.0-105.0); MEAN CORPUSCULAR HEMOGLOBIN 27.9 pg (25.0-35.0); MEAN CORPUSCULAR HGB CONC 32.4 g/dl (31.0-37.0); MEAN PLATELET VOLUME 9.9 fl (7.0-11.0); RBC 3.66 10^6/uL (3.5-6.1); RED CELL DISTRIBUTION WIDTH 13.6 % (11.5-14.5)
[2018-04-04] MEDS: Heparin25000 units/250ml 1/2NS 25,000 UNITS/250 ML BAG IV PRN (00:22)
[2018-04-04 07:05] LABS: BASO # 0.01 K/mm3 (0.0-2.0); BASO % 0.2 % (0.0-3.0); EOS # 0.2 (0.0-0.7); GRAN # 3.14 (1.4-6.5); GRAN % 54.3 % (50.0-68.0); HEMOGLOBIN 9.6 g/dL (12.0-16.0); LYMPH # 2.1 (1.2-3.4); LYMPH % 35.8 % (22.0-35.0); MEAN CELL VOLUME 86.2 fl (80.0-105.0); MEAN CORPUSCULAR HEMOGLOBIN 27.1 pg (25.0-35.0); MEAN CORPUSCULAR HGB CONC 31.5 g/dl (31.0-37.0); MEAN PLATELET VOLUME 10.1 fl (7.0-11.0); MONO # 0.3 (0.1-0.6); MONO % 5.7 % (1.0-6.0); RBC 3.54 10^6/uL (3.5-6.1); RED CELL DISTRIBUTION WIDTH 13.6 % (11.5-14.5); WHITE BLOOD COUNT 5.8 10^3/ul (4.5-11.0)
[2018-04-04 07:48] LABS: ALB/GLOB RATIO 1.1 (1.1-1.8); ALBUMIN 3.1 g/dL (3.0-4.8); ALT/SGPT 74 U/L (7-56); AST/SGOT 48 U/L (14-36); BLOOD UREA NITROGEN 6 mg/dL (7-21); CALCIUM 8.2 mg/dL (8.4-10.5); GFR NON-AFRICAN AMERICAN > 60
--- NOTE | 2018-04-04 07:57 | PN ---
Copied To: Juan Smith MD Attending MD: Juan Smith MD DATE: 04/04/2018 PULMONARY NOTE SUBJECTIVE: The patient appears very comfortable this morning. She is not short of breath at rest. PHYSICAL EXAMINATION: VITAL SIGNS: Temperature is 98.2, pulse is 96, respirations 17, blood pressure 128/88. Oxygen saturation on room air is 98%. HEENT: Normocephalic, atraumatic. No JVD. CARDIOVASCULAR: Positive S1, S2. No S3 gallop. LUNGS: Clear bilaterally. EXTREMITIES: There is mild edema in both lower extremities. There is no cyanosis or clubbing. Calves are nontender to palpation. GI: Abdomen is soft, nontender and nondistended. Bowel sounds are positive. SKIN: No acute rash. NEUROLOGIC: Limited at the present time. PERTINENT LABORATORY DATA: Extremity ultrasound results were reviewed. There is no sonographic evidence for deep venous thrombosis. IMPRESSION: 1. Bilateral pulmonary emboli. 2. Mild anemia. 3. Menorrhagia. 4. Seizure disorder. PLAN: The patient appears very comfortable this morning. She is not short of breath at rest. She does state to feeling much better overall. I did discuss the case with the night nurse at length. The night nurse stated that the patient had a very good night. The night nurse also stated that she did not observe any significant shortness of breath or cough from the patient during her shift. On physical exam, her lungs remain clear. In addition, the oxygen saturation on room air is 98%. I did review the note by the solid surface fabricator (Dr. Montes) from yesterday. Apparently, the patient was on Provera (not estrogen) as an outpatient. Dr. Montes also spoke with Dr. Hilario (gun barrel finisher) yesterday. There is no official consultation on the chart. At the present time, the patient remains on the heparin protocol. She remains hemodynamically stable with no alveolar-arterial gradient. The patient is being monitored closely for vaginal bleeding. So far, there has no been no significant bleeding. If the patient continues with her clinical improvement, she should be switched to an oral agent in the near future. Dr. Montes also offered the suggestion of an inferior vena cava filter - in case the patient bleeds as an outpatient. I will discuss this issue with Dr. Rock - and ask him whether he would like a consultation with Dr. Ever Cruz (interventional radiologist). Clinical status of the patient is significantly improved overall. Again, I will discuss the case with Dr. Rock this morning. Juan Smith MD [id number]
[2018-04-04] MEDS: Sodium Chloride 0.9% 1,000 ML IV SCH (09:25)
--- NOTE | 2018-04-04 13:23 | PN ---
Copied To: Bladimir Rock MD Attending MD: Bladimir Rock MD DATE: 04/03/2018 DAILY PROGRESS NOTE SUBJECTIVE: The patient is a 47-year-old female who is morbidly obese who presented to the Emergency Room complaining of sudden and severe shortness of breath. She was found to have bilateral pulmonary emboli, was admitted to the Intensive Care Unit and started on anticoagulants. The patient also has heavy menstrual bleeding. She was recently started on progesterone by her nursing unit manager and was planning for hysterectomy prior to the onset of these symptoms. The patient's only past medical history is positive for hypertension, renal calculus, a cyst of the left breast which we biopsied years ago. When seeing the patient was ambulating from the bathroom to her bed, she was slightly short of breath on the 10 to 20 foot walk. She said she feels no pain. During our conversation, she stated that she was anticipating an inferior vena cava filter to be placed. I will call Dr. Ever Cruz to consult for IVC filter placement. PHYSICAL EXAMINATION: LUNGS: Clear to auscultation and percussion. HEART: Regular. DATA: Laboratory studies showed a white blood cell count to be 7.1, hemoglobin and hematocrit of 10 and 30.6, BUN is 10, creatinine 0.6. So at this point, we are considering IVC filter placement, continuing with anticoagulation. We will not be resuming her progesterone and the patient will be anticoagulated for quite a while to follow up with her nursing unit manager as an outpatient. The patient will be reevaluated in the morning. Bladimir Rock MD
[2018-04-04 15:43] LABS: HEMOGLOBIN 10.5 g/dL (12.0-16.0); MEAN CELL VOLUME 87.1 fl (80.0-105.0); MEAN CORPUSCULAR HEMOGLOBIN 28.2 pg (25.0-35.0); MEAN CORPUSCULAR HGB CONC 32.4 g/dl (31.0-37.0); RBC 3.72 10^6/uL (3.5-6.1); RED CELL DISTRIBUTION WIDTH 13.5 % (11.5-14.5); WHITE BLOOD COUNT 5.9 10^3/ul (4.5-11.0)
--- NOTE | 2018-04-04 18:44 | PN ---
Copied To: Michael Rock MD Attending MD: Michael Rock MD DATE: 04/04/2018 SUBJECTIVE: The patient is doing amazingly well given she was sent to the emergency room with bilateral pulmonary emboli less than 48 hours ago. She is on the telemetry floor, out of bed in a chair, but reports still feeling short of breath just walking about the room. Pulmonary note was appreciated. Case was discussed at length with Dr. Smith in person at the nursing station. We are both in agreement about the IVC filter. I spoke with the patient about this at the time of admission and that will be indicated if we were unable to anticoagulate her. I spoke with her thermit welding machine operator by phone, who agreed that since the patient has been doing rather well as far as bleeding is concerned for the last several months, was not rushed to IVC filter, but rather try systemic anticoagulation first. Dr. Smith and I discussed progesterone. We are both concerned about possible thrombogenic effects, although Dr. Hilario, her thermit welding machine operator is less concerned, but we were both delayed resuming that medication caution given the bilateral PEs. Lastly, Dr. Smith and I had reviewed the anticoagulations. We will begin the Eliquis today. We will start off at 10 mg p.o. b.i.d. x1 week, then 5 mg p.o. daily. PHYSICAL EXAMINATION: GENERAL: The patient is comfortable out of bed in a chair with her father visiting at the bedside. LUNGS: Show good aeration. HEART: Regular. Not tachycardic. ABDOMEN: Unremarkable, although moderately overweight. EXTREMITIES: Unremarkable. I spoke with the patient again about weight. I talked about IVC filter and she too would prefer waiting unless absolutely necessary. We reviewed the medications. Because she is still short of breath with slight exertions such as walking across the room, she will not be able to go home today as it requires traveling up three flights of stairs. We will continue current regimen and hope for discharge in the next day or two. Michael Rock MD
[2018-04-05 07:19] LABS: BASO # 0.01 K/mm3 (0.0-2.0); BASO % 0.2 % (0.0-3.0); EOS # 0.2 (0.0-0.7); EOS % 3.3 % (1.5-5.0); GRAN # 3.68 (1.4-6.5); GRAN % 57.6 % (50.0-68.0); HEMOGLOBIN 9.9 g/dL (12.0-16.0); LYMPH # 2.1 (1.2-3.4); LYMPH % 32.6 % (22.0-35.0); MEAN CELL VOLUME 86.2 fl (80.0-105.0); MEAN CORPUSCULAR HEMOGLOBIN 27.3 pg (25.0-35.0); MEAN CORPUSCULAR HGB CONC 31.7 g/dl (31.0-37.0); MONO # 0.4 (0.1-0.6); MONO % 6.3 % (1.0-6.0); RBC 3.62 10^6/uL (3.5-6.1); RED CELL DISTRIBUTION WIDTH 13.5 % (11.5-14.5); WHITE BLOOD COUNT 6.4 10^3/ul (4.5-11.0)
[2018-04-05 07:34] LABS: ALB/GLOB RATIO 1.1 (1.1-1.8); ALBUMIN 3.4 g/dL (3.0-4.8); ALT/SGPT 80 U/L (7-56); AST/SGOT 57 U/L (14-36); BLOOD UREA NITROGEN 7 mg/dL (7-21); CALCIUM 8.5 mg/dL (8.4-10.5); GFR NON-AFRICAN AMERICAN > 60
[2018-04-05 07:36] VITALS: O2SAT 98
--- NOTE | 2018-04-05 08:36 | PN ---
Copied To: Juan Smith MD Attending MD: Juan Smith MD DATE: 04/05/2018 PULMONARY NOTE SUBJECTIVE: The patient appears very comfortable this morning. She is not short of breath at rest. OBJECTIVE: VITAL SIGNS: Temperature is 97.5, pulse on the monitor is 91, respiratory rate 18/20, blood pressure 136/85. Oxygen saturation on room air is 98%. HEENT: Normocephalic, atraumatic. No JVD. CARDIOVASCULAR: Positive S1, S2. No S3 gallop. LUNGS: Clear bilaterally. EXTREMITIES: There is mild edema in both lower extremities. There is no cyanosis or clubbing. Calves are nontender to palpation. GI: Abdomen is soft, nontender and nondistended. Bowel sounds are positive. SKIN: No acute rash. NEUROLOGIC: Exam limited at the present time. IMPRESSION: 1. Bilateral pulmonary emboli. 2. Mild anemia. 3. Menorrhagia. 4. Seizure disorder. PLAN: The patient appears very comfortable this morning. She is not short of breath at rest. She does state to feeling much better overall. I did discuss the case with the night nurse at length. The night nurse stated that the patient had a very good night, and that she did not observe any significant shortness of breath or cough( by the patient) during her shift. On physical exam, her lungs remain clear. Oxygen saturation on room air is 98%. She remains hemodynamically stable. The patient has been transitioned to Eliquis. Clinical status of the patient is significantly improved overall. I did discuss the case with Dr. Rock at length yesterday. I will also discuss the case with him again this morning. The patient will also need to be followed very closely by her HEALTH SERVICES MANAGER doctor as an outpatient--she is well aware. Juan Smith MD MTDD
[2018-04-05 12:18] VITALS: BP 142/98; PULSE 79; RESP 18; TEMP 98
== END 2018-04-05 17:49 | disposition home or self-care (01) | DRG 176 ==
LOC: ED 17:13 → ERH 21:57 → ICU 04-03 00:07 → 2RNO 04-03 19:12
PROVIDERS: ADMIT Internal Medicine; ATTEND Internal Medicine
DX: I26.99 Other pulmonary embolism without acute cor pulmonale (principal); Z68.42 Body mass index [BMI] 45.0-49.9, adult; D50.0 Iron deficiency anemia secondary to blood loss (chronic); N92.0 Excessive and frequent menstruation with regular cycle; G40.909 Epilepsy, unspecified, not intractable, without status epilepticus; I10 Essential (primary) hypertension; E87.6 Hypokalemia; E66.01 Morbid (severe) obesity due to excess calories; Z87.442 Personal history of urinary calculi; Z88.0 Allergy status to penicillin; Z83.3 Family history of diabetes mellitus; Z82.49 Family history of ischemic heart disease and other diseases of the circulatory system